=== PATIENT | male | born 2000 | race Caucasian/White ===

== ENCOUNTER 2021-12-04 08:29 | Emergency (ER) | payer SELFPAY ==
[~2021-12-04] VITALS: Ht 170.2 cm; Wt 63.5 kg
[2021-12-04 08:32] VITALS: BP 157/81
[2021-12-04 08:39] VITALS: BP 157/81
== END 2021-12-04 08:39 ==
LOC: MED 08:29
DX: F10.129 Alcohol abuse with intoxication, unspecified (principal); Z02.89 Encounter for other administrative examinations; Y90.9 Presence of alcohol in blood, level not specified
CPT/HCPCS: 99283